=== PATIENT | female | born 1995 | race Caucasian/White ===

== ENCOUNTER 2017-02-04 14:45 | Emergency (ER) | payer MEDICARE, OTHER ==
[~2017-02-04] VITALS: Ht 170.2 cm; Wt 72.7 kg
[2017-02-04 16:06] VITALS: BP 124/76
== END 2017-02-04 16:37 | disposition home or self-care (01) ==
LOC: EMS 14:46
DX: L08.9 Local infection of the skin and subcutaneous tissue, unspecified (principal); L29.9 Pruritus, unspecified
CPT/HCPCS: 99283